=== PATIENT | female | born 1980 | race Caucasian/White ===

== ENCOUNTER 2019-10-04 14:57 | Emergency (ER) | payer OTHER ==
[~2019-10-04] VITALS: Ht 165.1 cm; Wt 79.4 kg
[2019-10-04] MEDS ORDERED: LORA-259 PO (15:09)
--- NOTE | 2019-10-04 15:10 | NUR ---
Dr. Lake at the bedside for MSE.
[2019-10-04] MEDS ORDERED: LORAZEPAM 0.5 MG TABLET PO ONE ×2 (15:15→16:00)
[2019-10-04] MEDS ORDERED: LORAZEPAM 0.5 MG TABLET ONE ×2 (15:24→15:57)
--- NOTE | 2019-10-04 16:05 | NUR ---
Patient discharged to home in stable condition. Written and verbal after care instructions given. Patient verbalizes understanding of instructions. Stressed follow up or return to ER for worsening s/s. Pt instructed not to drive.
== END 2019-10-04 16:09 | disposition home or self-care (01) ==
LOC: ER 16:08
DX: Z76.0 Encounter for issue of repeat prescription (principal); F41.9 Anxiety disorder, unspecified
CPT/HCPCS: 93005; A4663

== ENCOUNTER 2021-02-01 22:35 | Emergency (ER) | payer MEDICAID, OTHER ==
[~2021-02-01] VITALS: Ht 180.3 cm; Wt 77.1 kg
[~2021-02-01 22:35] MED LIST: LORA-259 PO
--- NOTE | 2021-02-01 23:05 | NUR ---
Luke TAYLOR AT BEDSIDE MSE IN PROGRESS.
[2021-02-01] MEDS ORDERED: LORA-259 PO (23:11)
[2021-02-01] MEDS ORDERED: HYDR-4209 PO (23:11)
[2021-02-01] MEDS ORDERED: LORAZEPAM 0.5 MG TABLET PO ONE (23:15)
[2021-02-01] MEDS ORDERED: HYDROCODONE/APAP 10-325 MG TABLET PO ONE (23:15)
[2021-02-01] MEDS ORDERED: ONDANSETRON ODT 4 MG TAB.RAPDIS SL ONE (23:15)
[2021-02-01 23:17] VITALS: BP 145/78
--- NOTE | 2021-02-01 23:17 | NUR ---
Patient discharged to home in stable condition. Written and verbal after care instructions given. Patient verbalizes understanding of instructions. Stressed follow up or return to ER for worsening s/s.
[2021-02-01] MEDS ORDERED: HYDROCODONE/APAP 10-325 MG TABLET ONE (23:20)
[2021-02-01] MEDS ORDERED: ONDANSETRON ODT 4 MG TAB.RAPDIS ONE (23:20)
[2021-02-01] MEDS ORDERED: LORAZEPAM 1 MG TABLET ONE (23:21)
== END 2021-02-01 23:17 | disposition home or self-care (01) ==
LOC: ER 22:35
DX: M62.838 Other muscle spasm (principal); F41.9 Anxiety disorder, unspecified; Z79.899 Other long term (current) drug therapy; M41.9 Scoliosis, unspecified
CPT/HCPCS: A4663; Q0162

== ENCOUNTER 2021-02-04 20:38 | Emergency (ER) | payer MEDICAID ==
[~2021-02-04] VITALS: Ht 165.1 cm; Wt 77.1 kg
[~2021-02-04 20:38] MED LIST changes: +HYDR-4209 PO
--- NOTE | 2021-02-04 21:16 | NUR ---
PATIENT WALKED INTO ER WITH STEADY GAIT C/O NECK PAIN. PATIENT WAS SEEN HERE ON 02/01/2021 FOR SAME COMPLAINT. CAME IN FOR WORSENING PAIN.
--- NOTE | 2021-02-04 21:20 | NUR ---
Dr. Carmen on bedside for MSE.
[2021-02-04] MEDS ORDERED: LORA2TAB95 PO (21:43)
[2021-02-04] MEDS ORDERED: HYDR-3980 PO (21:43)
[2021-02-04 21:49] VITALS: BP 138/80
--- NOTE | 2021-02-04 21:49 | NUR ---
Patient discharged to home in stable condition. Written and verbal after care instructions given. Patient verbalizes understanding of instructions. Stressed follow up or return to ER for worsening s/s. Patient ambulated fr the ER with steady gait. All belongings with patient.
== END 2021-02-04 21:50 | disposition home or self-care (01) ==
LOC: ER 20:42
DX: M62.838 Other muscle spasm (principal); Z76.0 Encounter for issue of repeat prescription; F41.9 Anxiety disorder, unspecified; R03.0 Elevated blood-pressure reading, without diagnosis of hypertension
CPT/HCPCS: A4663

== ENCOUNTER 2024-03-09 09:19 | Emergency (ER) | payer MEDICAID ==
[~2024-03-09] VITALS: Ht 165.1 cm; Wt 81.6 kg
[~2024-03-09 09:19] MED LIST changes: +HYDR-3980 PO; +LORA2TAB95 PO
[2024-03-09] MEDS ORDERED: GUAI5SYR4 PO (09:45)
[2024-03-09] MEDS ORDERED: ALBU6.7H9 INH (09:45)
[2024-03-09 09:51] VITALS: BP 116/67; TEMP 98; O2SAT 98
== END 2024-03-09 10:02 | disposition home or self-care (01) ==
LOC: ER 09:20
DX: J20.8 Acute bronchitis due to other specified organisms (principal); B97.89 Other viral agents as the cause of diseases classified elsewhere; F41.9 Anxiety disorder, unspecified
CPT/HCPCS: A4606; A4663

== ENCOUNTER 2024-09-18 16:02 | Emergency (ER) | payer MEDICAID ==
[~2024-09-18] VITALS: Ht 165.1 cm; Wt 74.8 kg
[~2024-09-18 16:02] MED LIST changes: +ALBU6.7H9 INH; +GUAI5SYR4 PO
[2024-09-18 16:06] VITALS: O2SAT 98
[2024-09-18] MEDS ORDERED: LORAZEPAM 1 MG TABLET ONE (16:17)
[2024-09-18] MEDS: LORAZEPAM 0.5 MG TABLET PO ONE (16:19)
[2024-09-18] MEDS ORDERED: LORA-259 PO (16:22)
== END 2024-09-18 16:25 | disposition home or self-care (01) ==
LOC: ER 16:12
DX: F41.9 Anxiety disorder, unspecified (principal)
CPT/HCPCS: A4606; A4663

== ENCOUNTER 2025-03-29 06:18 | Emergency (ER) | payer MEDICAID ==
[~2025-03-29] VITALS: Ht 165.1 cm; Wt 72.6 kg
[2025-03-29 06:35] VITALS: BP 108/69
[2025-03-29] MEDS ORDERED: NAPR-1477 PO (08:13)
[2025-03-29] MEDS ORDERED: OXYC-128 PO (08:13)
[2025-03-29 08:42] VITALS: BP 108/69; O2SAT 97
== END 2025-03-29 08:43 | disposition home or self-care (01) ==
LOC: ER 06:18
DX: S29.012A Strain of muscle and tendon of back wall of thorax, initial encounter (principal); G89.29 Other chronic pain; F41.9 Anxiety disorder, unspecified; Z90.49 Acquired absence of other specified parts of digestive tract; V89.2XXA Person injured in unspecified motor-vehicle accident, traffic, initial encounter; Y93.89 Activity, other specified; Y92.410 Unspecified street and highway as the place of occurrence of the external cause; Y99.9 Unspecified external cause status
CPT/HCPCS: 72072; A4606; A4663